=== PATIENT | female | born 1955 | race Caucasian/White ===

== ENCOUNTER 2017-09-02 12:09 | Emergency (ER) | payer BC, OTHER ==
[~2017-09-02] VITALS: Ht 165.1 cm; Wt 74.8 kg
[2017-09-02 14:11] VITALS: BP 146/82
== END 2017-09-02 14:54 | disposition home or self-care (01) ==
LOC: ER 12:09
DX: Z57.5 Occupational exposure to toxic agents in other industries (principal); Z88.1 Allergy status to other antibiotic agents; Z98.51 Tubal ligation status